=== PATIENT | female | born 1945 | race Hispanic/Latino ===

== ENCOUNTER 2019-07-22 13:29 | Inpatient (IN) | payer MEDICARE, OTHER ==
[~2019-07-22] VITALS: Ht 165.1 cm; Wt 116.1 kg
--- OUTSIDE RECORDS SUMMARY | 2019-07-22 13:30 | XMS REPORT ---
[facility] Address Unknown Phone Unavailable Care Team Providers Care Concrete Stone Finishing Supervisor Name Role Phone Diego MAYNARD Unavailable Unavailable Problems This patient has no known problems. Allergies, Adverse Reactions, Alerts This patient has no known allergies or adverse reactions. Medications This patient has no known medications. Results Test Description Test Time Test Comments Text Results Atomic Results Result Comments BREAST ULTRASOUND BILATERAL 2019-05-27 16:57:09 - DIAG MAMM BILATERAL HARRIETT CAD DIGITALBILATERAL DIGITAL DIAGNOSTIC MAMMOGRAM 3D/2D WITH CAD: 05/27/2019CLINICAL: Dense breasts. Digital breast tomosynthesis was performed in addition to routine CC and MLO views. Current mammographic images were evaluated by either a [employer] M-Vu or a [employer] ImageChecker CAD (computer aided detection system). Comparison is made to exams dated 05/14/2018 mammogram, mammogram, and 03/30/2017 mammogram - [facility]. The tissue of the left breast is heterogeneously dense. This may lower the sensitivity of mammography. The right breast has been surgically removed. No suspicious mass, architectural distortion, malignant type calcification, or lymph node abnormality detected. NEGATIVEBilateral ultrasound pending for additional evaluation. There is no mammographic evidence of malignancy. - BREAST ULTRASOUND BILATERALULTRASOUND OF BOTH BREASTS AND BOTH AXILLA: 05/27/2019Comparison is made to exams dated 05/14/2018 mammogram, 11/13/2017 mammog vale, and 03/30/2017 mammogram - [facility]. Real-time ultrasound of both breasts and both axilla was performed. No abnormalities were seen sonographically in either axilla. The right breast has been surgically removed. The chest wall shows no abnormalities. Benign cysts and dilated ducts seen bilaterally in the left breast. No solid masses. IMPRESSION: BENIGN - FOLLOW- UP RECOMMENDEDThere is no sonographic evidence of malignancy. A follow-up mammogram and an ultrasound in 6 months is recommended to demonstrate stability. Mary Bar M.D. dm/penrad:05/27/2019 16:57:09 Hop Farmer: Tanya THRASHER, [facility] sent: BIRADS 1-2 Combo FU Letter Mammogram BI-RADS: 1 Negative Ultrasound BI-RADS: 2 Benign DIAG MAMM BILATERAL HARRIETT CAD DIGITAL 2019-05-27 16:57:09 - DIAG MAMM BILATERAL HARRIETT CAD DIGITALBILATERAL DIGITAL DIAGNOSTIC MAMMOGRAM 3D/2D WITH CAD: 05/27/2019CLINICAL: Dense breasts. Digital breast tomosynthesis was performed in addition to routine CC and MLO views. Current mammographic images were evaluated by either a [employer] M-Vu or a [employer] ImageRacemicker CAD (computer aided detection system). Comparison is made to exams dated 05/14/2018 mammogram, mammogram, and [facility] The tissue of the left breast is heterogeneously dense. This may lower the sensitivity of mammography. The right breast has been surgically removed. No suspicious mass, architectural distortion, malignant type calcification, or lymph node abnormality detected. NEGATIVEBilateral ultrasound pending for additional evaluation. There is no mammographic evidence of malignancy. - BREAST ULTRASOUND BILATERALULTRASOUND OF BOTH BREASTS AND BOTH AXILLA: 05/27/2019Comparison is made to exams dated 05/14/2018 mammogram, 11/13/2017 mammog vale, and [facility]. Real-time ultrasound of both breasts and both axilla was performed. No abnormalities were seen sonographically in either axilla. The right breast has been surgically removed. The chest wall shows no abnormalities. Benign cysts and dilated ducts seen bilaterally in the left breast. No solid masses. IMPRESSION: BENIGN - FOLLOW- UP RECOMMENDEDThere is no sonographic evidence of malignancy. A follow-up mammogram and an ultrasound in 6 months is recommended to demonstrate stability. Mary Bar M.D. dm/penrad:05/27/2019 16:57:09 Hop Farmer: Tanya THRASHER [facility]: BIRADS 1-2 Combo FU Letter Mammogram BI-RADS: 1 Negative Ultrasound BI-RADS: 2 Benign BREAST ULTRASOUND BILATERAL 2018-05-15 12:16:37 - DIAG MAMM BILATERAL HARRIETT CAD DIGITALBILATERAL DIGITAL DIAGNOSTIC MAMMOGRAM 3D/2D WITH CAD: 05/14/2018CLINICAL: 6 Month follow-up / Previous breast cancer. Digital breast tomosynthesis was performed in addition to routine CC and MLO views. Current mammographic images were evaluated by either a [employer] M-Vu or a [employer] CAD (computer aided detection system). Comparison is made to exams dated 11/13/2017 mammogram, [facility], and 04/17/2008 mammogram - [facility]. The tissue of the left breast is heterogeneously dense. This may lower the sensitivity of mammography. The right breast has been surgically removed. No suspicious mass, architectural distortion, malignant type calcification, or lymph node abnormality detected. INCOMPLETE ASSESSMENT: ADDITIONAL IMAGING EVALUATION RECOMMENDEDUltrasound pending for additional evaluation. Resume annual screening mammography in one year. - BREAST ULTRASOUND BILATERALULTRASOUND OF BOTH BREASTS AND BOTH AXILLA: 05/14/2018Comparison is made to exams dated 11/13/2017 mammogram, 03/30/[facility], and 04/17/2008 mammogram - [facility]. Real-time ultrasound of both breasts and both axilla was performed. No abnormalities were seen sonographically in either axilla. The right breast has been surgically removed. The chest wall shows no abnormalities. Benign cysts and dilated ducts were seen in the left breast. No solid masses were seen. IMPRESSION: BENIGN There is no sonographic evidence of malignancy. Patient has been informed that she has areas of dense breast tissue that could make it difficult to find a small cancer. A screening mammogram and supplemental ultrasound for dense breast tissue is recommended in 1 year.Mary Bar M.D. dm/:05/15/2018 12:16:37 Hop Farmer: Darby Cobb , [facility] BIRADS 1-2 Combo FU Letter Mammogram BI-RADS: 0 Indeterminate Ultrasound BI-RADS: 2 Benign DIAG MAMM BILATERAL HARRIETT CAD DIGITAL 2018-05-15 12:16:37 - DIAG MAMM BILATERAL HARRIETT CAD DIGITALBILATERAL DIGITAL DIAGNOSTIC MAMMOGRAM 3D/2D WITH CAD: 05/14/2018CLINICAL: 6 Month follow-up / Previous breast cancer. Digital breast tomosynthesis was performed in addition to routine CC and MLO views. Current mammographic images were evaluated by either a [employer] M-Vu or a [employer] ImageChecker CAD (computer aided detection system). Comparison is made to exams dated 11/13/2017 mammogram, 03/30/2017 [facility], and 04/17/2008 mammogram - [facility]. The tissue of the left breast is heterogeneously dense. This may lower the sensitivity of mammography. The right breast has been surgically removed. No suspicious mass, architectural distortion, malignant type calcification, or lymph node abnormality detected. INCOMPLETE ASSESSMENT: ADDITIONAL IMAGING EVALUATION RECOMMENDEDUltrasound pending for additional evaluation. Resume annual screening mammography in one year. - BREAST ULTRASOUND BILATERALULTRASOUND OF BOTH BREASTS AND BOTH AXILLA: 05/14/2018Comparison is made to exams dated 11/13/2017 mammogram, 03/30/2017 [facility], and 04/17/2008 mammogram - [facility]. Real-time ultrasound of both breasts and both axilla was performed. No abnormalities were seen sonographically in either axilla. The right breast has been surgically removed. The chest wall shows no abnormalities. Benign cysts and dilated ducts were seen in the left breast. No solid masses were seen. IMPRESSION: BENIGN There is no sonographic evidence of malignancy. Patient has been informed that she has areas of dense breast tissue that could make it difficult to find a small cancer. A screening mammogram and supplemental ultrasound for dense breast tissue is recommended in 1 year.Mary Bar M.D. dm/:05/15/2018 12:16:37 Hop Farmer: Darby Cobb , [facility] sent: BIRADS 1-2 Combo FU Letter Mammogram BI-RADS: 0 Indeterminate Ultrasound BI-RADS: 2 Benign SHOULDER LEFT COMPLETE [place] [address] Patient Name: SARA HORTON MR #: [id number] : 1945 Age/Sex: 71/F Req #: [id number] Adm Physician: Ordered by: LILI MAYNARD MD Report #: [id number] Location: Room/Bed: Procedure: [id number] DX/SHOULDER LEFT COMPLETE Exam Date: 11/25/16 Exam Time: 1425 REPORT STATUS: Signed PROCEDURE: X-RAY LEFT SHOULDER, COMPLETE COMPARISON: None. INDICATIONS: Not provided. FINDINGS: See below. CONCLUSION: Left humeral head fracture with an approximately 3.6 cm fracture fragment off the lateral humeral head/neck. Dictated by: Nakul Mayer M.D. on 11/25/2016 at 15:08 Electronically approved by: Nakul Mayer M.D. on 11/25/2016 at 15:08 Dictated By: NAKUL MAYER MD [id number] Transcribed By: JEAN PIERRE on 11/25/16 1508 COPY TO: LILI MAYNARD MD
[2019-07-22 14:44] LABS: BASOPHILS % 0.3 % (0.0-1.0); EOSINOPHILS # (AUTO) 0.1 (0.0-0.4); EOSINOPHILS % 0.4 % (0.0-6.0); HEMATOCRIT 41.9 % (34.2-44.1); LYMPHOCYTES # (AUTO) 1.5 (1.0-3.2); LYMPHOCYTES % 10.5 % (18.0-39.1); MEAN CORPUSCULAR HEMOGLOBIN 29.3 pg (28-32); MEAN CORPUSCULAR HGB CONC 33.4 g/dL (31-35); MEAN CORPUSCULAR VOLUME 87.7 fL (81-99); MONOCYTES # (AUTO) 0.8 (0.2-0.8); MONOCYTES % 5.9 % (4.4-11.3); NEUTROPHILS # (AUTO) 11.7 (2.1-6.9); NEUTROPHILS % 82.5 % (38.7-80.0); PLATELET COUNT 238 x10e3/uL (140-360); RED BLOOD COUNT 4.78 x10e6/uL (3.6-5.1); RED CELL DISTRIBUTION WIDTH 12.5 % (11.7-14.4)
[2019-07-22 15:10] LABS: ALANINE AMINOTRANSFERASE 23 IU/L (0-55); ALBUMIN 3.1 g/dL (3.5-5.0); ALBUMIN/GLOBULIN RATIO 0.6 (0.8-2.0); ALKALINE PHOSPHATASE 61 IU/L (40-150); ANION GAP 15.1 mmol/L (8-16); BLOOD UREA NITROGEN 19 mg/dL (7-26); BUN/CREATININE RATIO 18 (6-25); CALCIUM 9.8 mg/dL (8.4-10.2); CARBON DIOXIDE 23 mmol/L (22-29); CHLORIDE 100 mmol/L (98-107); CREATINE KINASE 179 IU/L (29-168); CREATININE, SERUM 1.07 mg/dL (0.57-1.11); EST GLOMERULAR FILTRATION RATE 50 ML/MIN (60-); GLUCOSE 164 mg/dL (74-118); POTASSIUM 4.1 mmol/L (3.5-5.1); SODIUM 134 mmol/L (136-145)
[2019-07-22] MEDS ORDERED: CEFEPIME HCL 1 GM VIAL IV SCH (15:30)
[2019-07-22] MEDS ORDERED: ONDANSETRON HCL INJ 2MG/ML 2ML 2 MG/ML VIAL IV PRN (15:30)
--- NOTE | 2019-07-22 16:22 | Diagnostic Imaging Report ---
EXAMINATION: FOOT RIGHT COMPLETE INDICATION: Cellulitis COMPARISON: None FINDINGS: No acute fracture or dislocation. Alignment is anatomic. Minimal midfoot soft tissue swelling. No specific radiographic evidence of osteomyelitis. Severe degenerative changes of the first MTP joint. Small plantar calcaneal spur. Mild atherosclerotic arterial calcifications. IMPRESSION: No acute osseous injury. Mild midfoot soft tissue swelling. No specific radiographic evidence of osteomyelitis. Severe first MTP joint degenerative changes. Signed by: Anabela Strickland MD on 07/22/2019 4:18 PM
[2019-07-22] MEDS: CEFEPIME 1GM/NS 0.9% 50 ML 50 ML IV SCH (16:27)
[2019-07-22] MEDS ORDERED: SODIUM CHLORIDE 0.9% 250ML 250 ML ONE (17:16)
[2019-07-22] MEDS: VANCOMYCIN 1GM/NS 250 ML 250 ML IV SCH (17:22)
[2019-07-22 17:28] VITALS: BP 128/63
[2019-07-22] MEDS ORDERED: GLIMEPIRIDE1 MG PO (17:41)
[2019-07-22] MEDS ORDERED: PRAVACHOL20 MG PO (17:41)
[2019-07-22] MEDS ORDERED: LISINOPRIL10 MG PO (17:41)
[2019-07-22] MEDS ORDERED: METFORMIN HCL500 MG PO (17:41)
[2019-07-22] MEDS ORDERED: ULTRACET TABLE1 EACH PO (17:41)
[2019-07-22] MEDS ORDERED: HYDROCHLOROTH12.5 MG PO (17:41)
[2019-07-22 17:55] VITALS: BP 128/63
[2019-07-22 18:00] VITALS: BP 128/63
--- NOTE | 2019-07-22 18:00 | NUR ---
Received patient from ER to room 289, patient is in stable condition. Patient is AAOX3, Bruneian speaking. Oriented to room and policies. Call light within reach. Bed in the lowest position.
--- NOTE | 2019-07-22 19:15 | NUR ---
BEDSIDE SHIFT REPORT RECEIVED FROM DAY RN. TLKED WITH DAUGHTER ABOUT CONCERNS MOM SPEAKS DJIBOUTIAN. INFORMED PT AND FAMILY WE HAVE INTERPRETERS VIA COMPUTER. CELLULITS OF RT FOOT PRESENT. MRI PENDING METFORMIN HELD.TELE ON SL 20 G IN LT FA- SITE HEALTHY.DENIES PAIN AMBULATE TO BATHROOM WITH ONE ASSIST. CALL LIGHT WITHIN REACH.BED LOCKED AND IN LOW POSITION.PT TALKING WITH DAUGHTER ON HER CELL PHONE.ALERT AND ORIENTED X3. RESPIRATIONS ARE EVEN AND UNLABORED. NO DISTRESS NOTED.
[2019-07-22 19:54] VITALS: BP 143/54
[2019-07-22 21:00] VITALS: BP 143/54
[2019-07-22] MEDS ORDERED: NON-FORMULARY MEDICATION (Glimepiride 1 MG) PO SCH (21:00)
[2019-07-22] MEDS: GLIMEPIRIDE 2 MG TAB PO SCH (21:23)
[2019-07-23] VITALS (8 sets, daily range): BP systolic 107–141; BP diastolic 47–63
[2019-07-23] MEDS: TRAMADOL/APAP 37.5MG-325MG TAB PO PRN ×3 (00:02→16:47)
--- NOTE | 2019-07-23 01:30 | NUR ---
PT C/O OF PAIN RT FOOT AFTER WALK TO BATHROOM. ULTRACET GIVEN ORDERED FOR PAIN 01/03 AT 1202. PT DECREASED WILL CONTINUE TO MONITOR FOR PAIN RELIEF. RT FOOT ELEVATED ON PILLOW.
[2019-07-23 05:31] LABS: BASOPHILS # (AUTO) 0.1 (0.0-0.1); BASOPHILS % 0.4 % (0.0-1.0); EOSINOPHILS # (AUTO) 0.2 (0.0-0.4); EOSINOPHILS % 1.7 % (0.0-6.0); HEMATOCRIT 38.3 % (34.2-44.1); HEMOGLOBIN 12.9 g/dL (12.0-16.0); LYMPHOCYTES # (AUTO) 2.5 (1.0-3.2); LYMPHOCYTES % 20.6 % (18.0-39.1); MEAN CORPUSCULAR HEMOGLOBIN 29.5 pg (28-32); MEAN CORPUSCULAR HGB CONC 33.7 g/dL (31-35); MEAN CORPUSCULAR VOLUME 87.6 fL (81-99); MONOCYTES # (AUTO) 0.9 (0.2-0.8); MONOCYTES % 7.3 % (4.4-11.3); NEUTROPHILS # (AUTO) 8.6 (2.1-6.9); NEUTROPHILS % 69.5 % (38.7-80.0); PLATELET COUNT 241 x10e3/uL (140-360); RED BLOOD COUNT 4.37 x10e6/uL (3.6-5.1); RED CELL DISTRIBUTION WIDTH 12.6 % (11.7-14.4)
[2019-07-23 05:51] LABS: ALANINE AMINOTRANSFERASE 18 IU/L (0-55); ALBUMIN 2.7 g/dL (3.5-5.0); ALBUMIN/GLOBULIN RATIO 0.6 (0.8-2.0); ALKALINE PHOSPHATASE 59 IU/L (40-150); BLOOD UREA NITROGEN 20 mg/dL (7-26); BUN/CREATININE RATIO 23 (6-25); CALCIUM 9.1 mg/dL (8.4-10.2); CARBON DIOXIDE 24 mmol/L (22-29); CHLORIDE 105 mmol/L (98-107); CREATININE, SERUM 0.86 mg/dL (0.57-1.11); EST GLOMERULAR FILTRATION RATE > 60 ML/MIN (60-); GLUCOSE 117 mg/dL (74-118); SODIUM 138 mmol/L (136-145)
[2019-07-23] MEDS: CEFEPIME 1GM/NS 0.9% 50 ML 50 ML IV SCH ×2 (06:09→15:13)
--- NOTE | 2019-07-23 07:00 | NUR ---
BEDSIDE SHIFT REPORT RECEIVED FROM THE ASSISTANT NURSE MANAGER RN. EDUCATED PT ABOUT FALL PRECAUTIONS. PT VERBALIZED UNDERSTANDING. CALL LIGHT WITH IN EASY REACH. INSTRUCTED PT TO USE CALL LIGHT FOR ALL THE NEEDS. BED IS LOW AND LOCKED. SIDE RAILS X2. BED ALARM IS ON. PT DENIES NEEDS AT THIS TIME.
[2019-07-23] MEDS ORDERED: GLIMEPIRIDE 2 MG TAB PO SCH (07:30)
[2019-07-23] MEDS: PRAVASTATIN 20 MG TAB PO SCH (08:11)
[2019-07-23] MEDS: GLIMEPIRIDE 2 MG TAB PO SCH ×2 (08:11→21:19)
[2019-07-23] MEDS ORDERED: LISINOPRIL 10 MG TAB PO SCH (09:00)
--- NOTE | 2019-07-23 09:40 | NUR ---
ASSESSMENT: Spiritual distress Pt fearful. Pt states she is worried about possibility of amputation. Pt identifies as Anabaptist. 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 Pt expressed emotions thru words and tears. Intervention: Provided unhurried empathic listening. Facilitated illness review and identification of emotions. Provided prayer from Anabaptist tradition. Outcome: Will follow as able. VICKIE WHITT Office Administration Instructor Spiritual Care Department O: [phone]
[2019-07-23] MEDS ORDERED: GADOBENATE DIMEGLUMINE 1 ML IV ONE (09:58)
[2019-07-23] MEDS: LISINOPRIL 20 MG TAB PO SCH (10:00)
--- NOTE | 2019-07-23 12:00 | NUR ---
PAGED DR. Cindy TENA AND REPORTED THE PT BLOOD SUGAR 220. NO NEW ORDERS RECEIVED.
--- NOTE | 2019-07-23 12:00 | NUR ---
PT OFF UNIT FOR MRI IN SAFE CONDITION.
--- NOTE | 2019-07-23 13:34 | Diagnostic Imaging Report ---
MRI of the right forefoot with and without contrast. History: Cellulitis. Infection of the little toe. Decreased range of motion pain not responding to conservative management. Technique: Multiplanar multisequence MRI of the right foot with and without IV contrast. 20 cc IV gadolinium contrast material was administered. Comparison: Radiographs 07/22/2019 Findings: No acute fracture, subluxation or avascular necrosis. No osseous erosion. Mild skin thickening with mild soft tissue edema most pronounced at the dorsal aspect of the foot and adjacent to the fifth. No well-formed drainable fluid collection/abscess is seen. The findings could be due to cellulitis. Scattered degenerative changes are seen most pronounced at the first metatarsophalangeal joint. No ligamentous or tendon tear. Mild muscle atrophy. No abnormal enhancing masses are seen. The visualized neurovascular bundles are intact Impression: Mild skin thickening with mild soft tissue edema most pronounced at the dorsal aspect of the foot and adjacent to the fifth. No well-formed drainable fluid collection/abscess is seen. The findings could be due to cellulitis. No MRI evidence to suggest osteomyelitis. Signed by: Dr. Ady Rodriguez M.D. on 07/23/2019 1:31 PM
[2019-07-23] MEDS: VANCOMYCIN 1GM/NS 250 ML 250 ML IV SCH (16:08)
[2019-07-23] MEDS ORDERED: METFORMIN HCL 500 MG TAB PO SCH (17:30)
--- NOTE | 2019-07-23 19:16 | NUR ---
BEDSIDE SHIFT REPORT RECEIVED FROM DAY RN. PT IS ALERT AND ORIENTED X3. PT SPEAKS KINYARWANDA AND PORTUGUESE.wILL PROVIDE NATURAL GAS TRADER NEEDED. RESPIRATIONS ARE EVEN AND UNLABORED. TELE ON. SL LT FOREARM 20G. NO BM TODAY BUT IS PASSING GAS. CELLULITIS OF RT FOOT- FOOT LESS REDDENED. PT DENIES PAIN. PT SITTING IN BED TALKING TO FAMILY ON HER PHONE. CALL LIGHT WITHIN REACH. BED LOCKED AND IN LOW POSITION.
--- NOTE | 2019-07-23 19:18 | NUR ---
BEDSIDE SHIFT REPORT GIVEN TO THE MONTESSORI PARAPROFESSIONAL RN. PT DENIED FURTHER NEEDS.
[2019-07-24] VITALS (8 sets, daily range): BP systolic 118–126; BP diastolic 46–61
[2019-07-24] MEDS: TRAMADOL/APAP 37.5MG-325MG TAB PO PRN ×3 (01:10→17:26)
[2019-07-24] MEDS: CEFEPIME 1GM/NS 0.9% 50 ML 50 ML IV SCH ×2 (04:00→16:58)
--- NOTE | 2019-07-24 09:00 | NUR ---
ASSESSMENT: Spiritual concern Follow up visit. Pt thankful for imaging results and hopeful concerning illness. Intervention: Provided supportive listening and blessing. Outcome: No need to follow at this time. VICKIE WHITT Volleyball Referee Spiritual Care Department O: [phone]
[2019-07-24] MEDS: GLIMEPIRIDE 2 MG TAB PO SCH ×2 (09:22→21:46)
[2019-07-24] MEDS: METFORMIN HCL 500 MG TAB PO SCH ×2 (09:22→16:58)
[2019-07-24] MEDS: LISINOPRIL 20 MG TAB PO SCH (09:23)
--- NOTE | 2019-07-24 12:00 | NUR ---
Patient IV infiltrated so a new 22g was placed into her left hand. Patient had no issues or complaints.
[2019-07-24] MEDS: VANCOMYCIN 1GM/NS 250 ML 250 ML IV SCH (17:53)
--- NOTE | 2019-07-24 20:14 | NUR ---
RECIEVED BEDSIDE SHIFT REPORT FROM DAYSHIFT, PATIENT AAOX4 AND RESTING COMFORTABLY IN BED WITH A PAIN LEVEL OF 0. NO CURRENT COMPLAINTS OR NEEDS AT THIS TIME. BED IN LOWEST POSITION, SIDERAILS UP X2, CALL LIGHT LEFT WITHIN REACH.
[2019-07-25] VITALS (9 sets, daily range): BP systolic 118–142; BP diastolic 56–65
[2019-07-25] MEDS: TRAMADOL/APAP 37.5MG-325MG TAB PO PRN ×3 (00:10→19:33)
[2019-07-25] MEDS: CEFEPIME 1GM/NS 0.9% 50 ML 50 ML IV SCH ×2 (04:09→15:40)
[2019-07-25] MEDS: METFORMIN HCL 500 MG TAB PO SCH ×2 (08:34→15:40)
[2019-07-25] MEDS: GLIMEPIRIDE 2 MG TAB PO SCH ×2 (08:34→23:49)
[2019-07-25] MEDS: LISINOPRIL 20 MG TAB PO SCH (08:35)
[2019-07-25] MEDS: PRAVASTATIN 20 MG TAB PO SCH (08:35)
[2019-07-25] MEDS: VANCOMYCIN HCL 1.25 GM in SODIUM CHLORIDE 0.9% 250ML 250 ML IV SCH ×2 (12:02→23:49)
--- NOTE | 2019-07-25 12:45 | Consultation ---
DATE OF CONSULTATION: REASON FOR CONSULTATION: Cellulitis of the left foot. HISTORY OF PRESENT ILLNESS: This patient is a very pleasant 73-year-old female, who has history of obesity, hypertension, diabetes mellitus, neuropathy. She comes into the emergency room with redness and swelling of her left foot, started with the 5th toe, but getting progressively worse and spreading upward. She took some oral antibiotic without any improvement. There is pain in the toe. The patient came to emergency room, where she was evaluated and being admitted. PAST MEDICAL HISTORY: As above. PAST SURGICAL HISTORY: Mastectomy. ALLERGIES: NKA. SOCIAL HISTORY: There is no smoking, drug abuse, or alcohol abuse. MEDICATIONS: She is currently on Prinivil, Glucophage, Amaryl, cefepime, and vancomycin. LABORATORY DATA: White count on admission was 14.15, hemoglobin 14. Her sodium is 138, potassium 4.0, creatinine 0.86. PHYSICAL EXAMINATION: GENERAL: Currently alert, oriented, does not seem to be in acute distress. VITAL SIGNS: Stable, currently afebrile. HEENT: Normocephalic. Not icteric. NECK: Supple. No JVD. No lymphadenopathy. No thyromegaly. CHEST: Clear bilateral. COR: S1 and S2. No S3, S4, or murmur. ABDOMEN: Soft and obese. No tenderness. No hepatosplenomegaly. EXTREMITIES: No edema. On the right leg, there is some erythema, there is edema. There is no bullous. There is no black eschar. IMPRESSION: Cellulitis of the leg, diabetes mellitus, hypertension. Agree with vancomycin, agree with cefepime. Obtain blood cultures. Recheck CBC. Recheck Chem panel. Follow vancomycin trough. We will follow the patient clinically and reassess in the morning. We will follow. MD ALEX Meneses/NATHALY /[id number]
--- NOTE | 2019-07-25 14:27 | NUR ---
SPOKE WITH PT SIGNED CHOICE FOR [facility]. FILED IN CHART COPIED CHART. NOTIFIED BY NURSE THAT DR BRICEÑO STATES ONLY A FEW MORE DAYS THEN HOME, CONTACTED DR TENA TO SEE IF CONTINUE LTAC REFERRAL. HANDED OFF THE CM.
--- NOTE | 2019-07-25 14:58 | NUR ---
Spoke with Dr. Santiago who states pt will need 14 days of IV abx. Referral for LTAC was faxed to [facility] at [phone]. [facility] was informed of [facility].
[2019-07-26] MEDS: TRAMADOL/APAP 37.5MG-325MG TAB PO PRN ×3 (01:30→15:20)
[2019-07-26] MEDS: CEFEPIME 1GM/NS 0.9% 50 ML 50 ML IV SCH (04:26)
[2019-07-26 04:48] VITALS: BP 131/59
[2019-07-26 07:15] VITALS: BP 132/62
--- NOTE | 2019-07-26 07:15 | NUR ---
PATIENT IN BED WITH HEAD OF BED ELEVATED WATCHING TV, NO COMPLAIN VOICED. REDNESS AND SWELLING TO RIGHT FOOT. BED IN LOWER POSITION, CALL LIGHT AT REACH.
[2019-07-26 08:00] VITALS: BP 132/62
[2019-07-26] MEDS: METFORMIN HCL 500 MG TAB PO SCH (08:54)
[2019-07-26] MEDS: GLIMEPIRIDE 2 MG TAB PO SCH (09:24)
[2019-07-26] MEDS: LISINOPRIL 20 MG TAB PO SCH (09:25)
--- NOTE | 2019-07-26 09:57 | NUR ---
LONG-TERM ACUTE CARE DISCHARGE INFORMATION PATIENT HAS BEEN ACCEPTED TO: [address] [place] [address] ACCEPTING BARREL LOADER: Anahi LUCERO MD: Dr. Krueger ROOM: 909 NURSE CALL REPORT TO: [phone] THE FOLLOWING DOCUMENTS MUST ACCOMPANY PATIENT FOR TRANSFER: copy of chart, transfer MAR. MOT INFO RECEIVED FROM: Loretta Rivero PHYSICIANS ORDER/RECONCILED MED LIST: to be obtained by bedside RN [id number] DNR: n/a MOT completed and placed with pt's packet at nurses station. William RN and Angeles show design supervisor were notified of MOT.
--- NOTE | 2019-07-26 11:13 | Progress Note ---
DATE: SUBJECTIVE: The patient is seen and evaluated. Available labs and notes reviewed. Discussed with Dr. Santiago in details. REVIEW OF SYSTEMS: The patient states that her right foot feels better, pain has improved, however, pain is more heavy than when puts pressure on the right foot while standing up. No nausea, vomiting, fever, chills, chest pain, shortness of breath, headache, dysuria, polyuria, rash, cough. OBJECTIVE: VITAL SIGNS: Temperature 98.1, pulse is 72, respiration 20, and blood pressure 132/62. GENERAL: Alert and oriented. No acute distress, very pleasant, comfortable in bed. CV: S1, S2. CHEST: Equal expansion, clear to auscultation. No acute distress. ABDOMEN: Soft and nontender. No distention. HEENT: Moist. No pallor. No JVD. EXTREMITIES: Right foot cellulitis with 2+ edema also has a small area maybe 5-6 cm around on a distal part of the tib-fib area. Left foot no edema. MEDICATIONS: Medication list reviewed. The patient is currently on vancomycin IV and cefepime. LABORATORY STUDIES: No new CBC or BMP available. White count was 12.35 on 07/22 with hemoglobin of 12.9, and platelet of 241. Creatinine was 0.86 on 07/22. MICROBIOLOGY: Blood culture negative x2 on 07/22/2019. RADIOLOGY STUDIES: MRI of the right foot was done on 07/22 showing mild skin thickening with mild soft tissue edema most pronounced at dorsal aspect of the foot and adjacent to the fifth. No well-formed drainable fluid collection/abscess is seen. The finding could be due to cellulitis. No MRI evidence to suggest osteomyelitis. ASSESSMENT AND PLAN: 1. Cellulitis of right foot. 2. Diabetes. 3. Hypertension. 4. Obesity/debility. 5. Leukocytosis. 6. Continue with vancomycin IV and cefepime at this point, plan noted for LTAC. Continue to elevate lower extremities. Tight glucose control. Optimize protein calorie intake. Further management of this patient based on daily findings on laboratory and physical examination. Thank you very much for this dictation. Dictated by Miguel Angel So PA-C (Al) Glen Santiago MD /MODL /[id number]
[2019-07-26] MEDS: VANCOMYCIN HCL 1.25 GM in SODIUM CHLORIDE 0.9% 250ML 250 ML IV SCH (11:36)
[2019-07-26 12:00] VITALS: BP 155/75
--- NOTE | 2019-07-26 12:04 | NUR ---
PATIENT ASSISTED WITH SHOWER, BACK IN BED WITH CALL LIGHT AT REACH.
--- NOTE | 2019-07-26 15:55 | NUR ---
PATIENT TRANSFERRED TO LTAC. REPORT CALLED AND GIVEN TO RECEIVING NURSE. ALL PERSONAL ITEMS TAKEN WITH PATIENT. IV TO LEFT FOREARM INTACT AND PATENT. PATIENT'S DAUGHTER NOTIFIED OF TRANSFER. LEFT UNIT ON STRETCHER PER AMBULANCE IN STABLE CONDITION.
[2019-07-26 16:00] VITALS: BP 153/68
== END 2019-07-26 15:56 | DRG 603 ==
LOC: ER 13:29 → ERHOLD 15:30 → MED/SURG3 16:55
DX: L03.115 Cellulitis of right lower limb (principal); Z68.41 Body mass index [BMI] 40.0-44.9, adult; E11.40 Type 2 diabetes mellitus with diabetic neuropathy, unspecified; Z79.4 Long term (current) use of insulin; E66.9 Obesity, unspecified; E78.5 Hyperlipidemia, unspecified; I10 Essential (primary) hypertension
CPT/HCPCS: 36415; 80053; 80202; 82550; 82553; 82948; 83605; 84484; 85025; 87040; 99284; J0692; J3370; J7050

== ENCOUNTER 2024-05-20 16:39 | Outpatient (RCR) | payer MEDICARE ==
[~2024-05-20 16:39] MED LIST: GLIMEPIRIDE1 MG PO; HYDROCHLOROTH12.5 MG PO; LISINOPRIL10 MG PO; METFORMIN HCL500 MG PO; PRAVACHOL20 MG PO; ULTRACET TABLE1 EACH PO
== END 2024-05-24 ==
LOC: PT 16:39
PROVIDERS: ATTEND Physician Assistant
DX: M17.11 Unilateral primary osteoarthritis, right knee (principal); M62.81 Muscle weakness (generalized); R26.2 Difficulty in walking, not elsewhere classified; M25.561 Pain in right knee; M25.661 Stiffness of right knee, not elsewhere classified

== ENCOUNTER 2024-06-10 16:50 | Outpatient (RCR) | payer MEDICARE | END 2024-06-24 | LOC: PT 16:50 | PROVIDERS: ATTEND Physician Assistant | DX: M17.11 Unilateral primary osteoarthritis, right knee (principal) ==

== ENCOUNTER → 2024-08-07 | Outpatient (REF) | payer MEDICARE ==
[~2024-08-07] MED LIST changes: +REGADENOSON 0.4 MG/5 ML SYR IV ONE
== END ==
LOC: NM 09:30
PROVIDERS: ATTEND Internal Medicine Cardiovascular Disease
DX: R07.9 Chest pain, unspecified (principal)
CPT/HCPCS: 78452; 93017; A9502; J2785